=== PATIENT | male | born 2000 | race Caucasian/White ===

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

== ENCOUNTER 2020-09-29 17:41 | Emergency (ER) | payer OTHER ==
[~2020-09-29 17:41] MED LIST: BACTROBAN NASAL1 G1; IBUPROFEN600 MG PO; KEFLEX CAP 500500 MG PO; NORCO 5-325 TA1 EACH PO
[2020-09-29] MEDS ORDERED: DECADRON6 MG PO (22:18)
[2020-09-29] MEDS ORDERED: NAPROSYN EC 50500 MG GT (22:18)
== END 2020-09-29 22:30 | disposition home or self-care (01) ==
LOC: ER1 17:41
DX: M54.5 Low back pain (principal)
CPT/HCPCS: 72131; 73502; 99284

== ENCOUNTER → 2020-11-30 | Outpatient (CLI) | payer OTHER ==
[~2020-11-30] MED LIST changes: +DECADRON6 MG PO; +NAPROSYN EC 50500 MG GT
== END ==
LOC: EMI 14:30
DX: M54.5 Low back pain (principal); M51.16 Intervertebral disc disorders with radiculopathy, lumbar region
CPT/HCPCS: 72148